=== PATIENT | female | born 1995 | race African-American/Black ===

== ENCOUNTER 2018-06-16 14:04 | Emergency (ER) | payer SELFPAY ==
[~2018-06-16] VITALS: Ht 152.4 cm; Wt 71.0 kg
[2018-06-16 14:41] VITALS: BP 125/77
== END 2018-06-16 17:10 | disposition left against medical advice (07) ==
LOC: ER 14:04
DX: O26.891 Other specified pregnancy related conditions, first trimester (principal); Z3A.01 Less than 8 weeks gestation of pregnancy; Z53.21 Procedure and treatment not carried out due to patient leaving prior to being seen by health care provider

== ENCOUNTER 2020-08-23 14:22 | Observation (INO) | payer MEDICAID, OTHER ==
[~2020-08-23] VITALS: Ht 152.4 cm; Wt 84.8 kg
[2020-08-23] MEDS ORDERED: LACTATED RINGERS 1,000 ML IV SCH (15:15)
[2020-08-23] MEDS ORDERED: PNV1TABL76 MT (15:20)
[2020-08-23 16:06] LABS: BASOPHILS % 0.8 % (0.0-2.0); EOSINOPHILS % 0.3 % (0.0-5.0); HEMATOCRIT. 33.5 % (36.0-48.0); HEMOGLOBIN. 11.3 g/dL (12.0-16.0); LYMPHOCYTES % 19.7 % (20.0-50.0); MEAN CORPUSCULAR HEMOGLOBIN 27.4 pg (28.0-32.0); MEAN CORPUSCULAR VOLUME 80.9 fL (81.0-99.0); MEAN PLATELET VOLUME 8.2 fl (7.4-10.4); MONOCYTES % 5.5 % (2.0-8.0); NEUTROPHILS % 73.7 % (40.0-76.0); PLATELET 310 x1000/uL (130-400); RED BLOOD CELL COUNT 4.14 mill/uL (4.2-5.4); RED CELL DISTRIBUTION WIDTH 15.3 % (11.6-14.6)
[2020-08-23 16:07] LABS: CLARITY URINE CLEAR (CLEAR); COLOR URINE YELLOW (YELLOW); KETONES URINE TRACE (NEGATIVE); LEUKOCYTE ESTERASE URINE NEGATIVE (NEGATIVE); NITRITE URINE NEGATIVE (NEGATIVE); OCCULT BLOOD URINE 1+ (NEGATIVE); PROTEIN URINE NEGATIVE (NEGATIVE); SPECIFIC GRAVITY URINE 1.017 (1.005-1.030); UROBILINOGEN URINE 0.2 E.U./dL (0.2-1.0)
== END 2020-08-23 19:00 | disposition home or self-care (01) ==
LOC: 8 EST LDRP 14:22
PROVIDERS: ADMIT Obstetrics & Gynecology; ATTEND Obstetrics & Gynecology
DX: O26.853 Spotting complicating pregnancy, third trimester (principal); Z3A.28 28 weeks gestation of pregnancy
CPT/HCPCS: 36415; 59025; 76805; 81003; 82947; 85025; 96360; 96361; G0378; 99281

== ENCOUNTER 2020-10-11 16:28 | Observation (INO) | payer OTHER ==
[~2020-10-11] VITALS: Ht 152.4 cm; Wt 92.5 kg
[~2020-10-11 16:28] MED LIST: PNV1TABL76 MT
== END 2020-10-11 18:15 | disposition home or self-care, planned readmission (81) ==
LOC: 8 EST LDRP 16:28
PROVIDERS: ADMIT Obstetrics & Gynecology; ATTEND Obstetrics & Gynecology
DX: O26.893 Other specified pregnancy related conditions, third trimester (principal); R10.2 Pelvic and perineal pain; Z3A.35 35 weeks gestation of pregnancy
CPT/HCPCS: 59025; 99281; G0378

== ENCOUNTER 2020-10-26 15:14 | Observation (INO) | payer OTHER ==
[~2020-10-26] VITALS: Ht 152.4 cm; Wt 95.3 kg
[2020-10-26] MEDS ORDERED: PREN1TAB23 PO (15:51)
[2020-10-26 17:44] LABS: CLARITY URINE CLOUDY (CLEAR); COLOR URINE YELLOW (YELLOW); KETONES URINE NEGATIVE (NEGATIVE); LEUKOCYTE ESTERASE URINE NEGATIVE (NEGATIVE); NITRITE URINE NEGATIVE (NEGATIVE); OCCULT BLOOD URINE NEGATIVE (NEGATIVE); PROTEIN URINE NEGATIVE (NEGATIVE); SPECIFIC GRAVITY URINE 1.012 (1.005-1.030); UROBILINOGEN URINE 0.2 E.U./dL (0.2-1.0)
== END 2020-10-26 19:31 | disposition home or self-care (01) ==
LOC: 8 EST LDRP 15:14
PROVIDERS: ADMIT Obstetrics & Gynecology; ATTEND Obstetrics & Gynecology
DX: O26.893 Other specified pregnancy related conditions, third trimester (principal); R10.2 Pelvic and perineal pain; Z3A.37 37 weeks gestation of pregnancy
CPT/HCPCS: 59025; 76805; 76818; 81003; G0378; 99281

== ENCOUNTER 2020-10-28 11:45 | Observation (INO) | payer OTHER ==
[~2020-10-28] VITALS: Ht 152.4 cm; Wt 95.7 kg
[~2020-10-28 11:45] MED LIST changes: +PREN1TAB23 PO
== END 2020-10-28 12:55 | disposition home or self-care (01) ==
LOC: 8 EST LDRP 11:45
PROVIDERS: ADMIT Obstetrics & Gynecology; ATTEND Obstetrics & Gynecology
DX: Z34.93 Encounter for supervision of normal pregnancy, unspecified, third trimester (principal); Z3A.37 37 weeks gestation of pregnancy
CPT/HCPCS: 59025; G0378